=== PATIENT | male | born 1945 | race Caucasian/White ===

== ENCOUNTER → 2016-09-25 | Outpatient (CLI) | payer MEDICARE, OTHER ==
[2016-09-25 09:39] LABS: BASOPHILS % (AUTO) 0 % (0-2); EOSINOPHILS # (AUTO) 0.1 10^3uL; EOSINOPHILS % (AUTO) 2 % (0-4); LYMPHOCYTES # (AUTO) 3.2 X10^3; MEAN CORPUSCULAR HGB CONC 34.1 g/dL (31.0-37.0); MEAN CORPUSCULAR VOLUME 95 FL (80-100); MEAN PLATELET VOLUME 10.1 FL (6.0-9.5); MONOCYTES # (AUTO) 0.8 X10^3; MONOCYTES % (AUTO) 12 % (3-11); NEUTROPHILS # (AUTO) 2.9 X10^3; NEUTROPHILS % (AUTO) 40 % (51-67); PLATELET COUNT 190 10^3uL (150-450); WHITE BLOOD COUNT 7.16 10^3uL (4.0-11.0)
[2016-09-25 09:42] LABS: BILIRUBIN,URINE Negative (Negative); CLARITY,URINE Clear; COLOR,URINE Yellow; GLUCOSE, URINE (UA) Negative (Negative); LEUKOCYTE ESTERASE ,URINE Negative (Negative); PH,URINE 5.5 (5.0 - 8.0); UROBILINOGEN,URINE 0.2 mg/dL (0.2-1.0)
[2016-09-25 10:05] LABS: MEAN CORPUSCULAR HEMOGLOBIN 32.2 PG (26.0-34.0)
[2016-09-25 10:11] LABS: ALBUMIN 4.5 g/dL (3.4-5.0); ANION GAP 14.2 MEQ/L (3-15); TOTAL PROTEIN 7.8 g/dL (6.4-8.5)
[2016-09-25 10:15] LABS: URINE CENTRIFUGED VOLUME 12 mL
== END ==
LOC: LAB 09:09
PROVIDERS: ATTEND Family Medicine
DX: R79.89 Other specified abnormal findings of blood chemistry (principal); E78.2 Mixed hyperlipidemia; D50.8 Other iron deficiency anemias; N39.0 Urinary tract infection, site not specified; E13.65 Other specified diabetes mellitus with hyperglycemia; E83.42 Hypomagnesemia; N40.0 Benign prostatic hyperplasia without lower urinary tract symptoms; E03.4 Atrophy of thyroid (acquired); M81.0 Age-related osteoporosis without current pathological fracture
CPT/HCPCS: 36415; 80053; 80061; 81003; 81015; 82306; 83036; 83735; 84153; 84436; 84443; 85025

== ENCOUNTER 2016-09-29 19:58 | Inpatient (IN) | payer MEDICARE, OTHER ==
[~2016-09-29] VITALS: Ht 177.8 cm; Wt 120.4 kg
[2016-09-29] MEDS ORDERED: ONDANSETRON 2 MG/ML (Z0FRAN) 2 ML VIAL IV ONE ×2 (20:40→22:40)
[2016-09-29 21:10] LABS: MEAN CORPUSCULAR HGB CONC 34.8 g/dL (31.0-37.0); MEAN CORPUSCULAR VOLUME 95 FL (80-100); MEAN PLATELET VOLUME 10.2 FL (6.0-9.5); PLATELET COUNT 160 10^3uL (150-450); WHITE BLOOD COUNT 9.08 10^3uL (4.0-11.0)
[2016-09-29 21:16] LABS: ALBUMIN 4.4 g/dL (3.4-5.0); ANION GAP 18.6 MEQ/L (3-15); CALCULATED IONIZED CALCIUM 3.9 mg/dL (3.8-4.6)
[2016-09-29 21:27] LABS: MEAN CORPUSCULAR HEMOGLOBIN 32.9 PG (26.0-34.0)
[2016-09-29 21:38] LABS: BAND NEUTROPHILS % 7 % (0-6); EOSINOPHILS % 0 % (0-4); MONOCYTES # 0.7 #; MONOCYTES % 8 % (3-11); SEGMENTED NEUTROPHILS % 62 % (51-67); TOTAL CELLS COUNTED 100
[2016-09-29 21:39] LABS: ANISOCYTOSIS SLIGHT; POIKILOCYTOSIS SLIGHT; RBC MORPH SEE REFERENCE (NORMAL)
--- NOTE | 2016-09-29 22:30 | NUR ---
Pt sitting on side of bed c/o severe nausea. Dr. Altamirano notified. Awaiting orders.
[2016-09-29 22:50] LABS: BILIRUBIN,URINE 1+ (Negative); CLARITY,URINE Clear; COLOR,URINE Dark Yellow; GLUCOSE, URINE (UA) Negative (Negative); LEUKOCYTE ESTERASE ,URINE Negative (Negative); PH,URINE 5.5 (5.0 - 8.0); UROBILINOGEN,URINE 0.2 mg/dL (0.2-1.0)
--- NOTE | 2016-09-29 23:45 | NUR ---
Pt drinking oral contrast. Naz. well.
[2016-09-30 00:19] LABS: URINE CENTRIFUGED VOLUME 12 mL
--- NOTE | 2016-09-30 01:10 | NUR ---
Pt back from CT scan. Pt c/o pain to abdomen and requesting pain medication. Rates pain 11/21. Dr. Altamirano notified.
[2016-09-30] MEDS ORDERED: morphine INJ 2 MG/ML 1 ML SYRINGE IV ONE (01:15)
--- NOTE | 2016-09-30 02:30 | NUR ---
NG placed to continuous low wall suction. Had immediate return of light green liquid 500 ml. Pt chandni. placement of NG well.
[2016-09-30] MEDS ORDERED: morphine INJ 4 MG/ML 1 ML SYRINGE IV PRN (02:50)
--- NOTE | 2016-09-30 02:52 | NUR ---
NOTIFIED SUPERVISOR FRONT OF PT ADMIT
--- NOTE | 2016-09-30 03:01 | NUR ---
Patient admitted to room 308 at this time. NG tube in place in right nare from ED, connected to LIWS per order. Patient reports pain 0/10 at this time. Son at bedside. Patient requests to rest in recliner. No needs at this time. Please see admission assessment part 1 & 2. Will continue to monitor.
[2016-09-30 03:15] VITALS: BP 134/88
[2016-09-30] MEDS ORDERED: morphine INJ 2 MG/ML 1 ML SYRINGE ONE (06:15)
[2016-09-30] MEDS: ONDANSETRON 2 MG/ML (Z0FRAN) 2 ML VIAL IV PRN ×2 (06:35→15:18)
--- NOTE | 2016-09-30 06:37 | NUR ---
Patient reporting some pain and some nausea this AM, Morphine and Zofran given. Patient sitting in bed visiting with son. Green output noted in NG tubing, no drainage in container yet. Patient without needs at this time.
[2016-09-30 07:27] VITALS: BP 134/89
--- NOTE | 2016-09-30 07:30 | NUR ---
Patient conversing with son at edge of bed upon shift assessment. Alert and oriented X3. Reports medial abdominal pain rated 2/10 on pain scale. Denies nausea, SOA, bloating, or other distress. Abdomen noted to be distended, firm, and tender to touch. Bowel sounds audible in all quadrants. NG intact to right nare with small amount of clear green output in tubing. IVF infusing without difficulty. Mouth swabs provided per patient request. Updated patient on plan of care for shift including pain management and bowel rest. Call light in reach.
[2016-09-30] MEDS: D5 1/2 NS W/KCL 20 MEQ/L 1,000 ML IV SCH ×3 (07:39→16:58)
[2016-09-30] MEDS ORDERED: PROMETHAZINE HCL INJ 12.5 MG in SODIUM CHLORIDE 25 ML IV PRN (08:30)
[2016-09-30] MEDS ORDERED: SODIUM CHLORIDE FLUSH 10 ML SYR IV SCH (08:45)
[2016-09-30] MEDS: SODIUM CHLORIDE FLUSH 3 ML SYR IV SCH (08:59)
[2016-09-30] MEDS: morphine INJ 4 MG/ML 1 ML SYRINGE IV PRN ×4 (09:24→17:24)
[2016-09-30 11:11] VITALS: BP 126/80
[2016-09-30 11:28] LABS: MEAN CORPUSCULAR HGB CONC 33.8 g/dL (31.0-37.0); MEAN CORPUSCULAR VOLUME 94 FL (80-100); MEAN PLATELET VOLUME 9.9 FL (6.0-9.5); PLATELET COUNT 157 10^3uL (150-450); WHITE BLOOD COUNT 5.75 10^3uL (4.0-11.0)
[2016-09-30 11:32] LABS: MEAN CORPUSCULAR HEMOGLOBIN 31.8 PG (26.0-34.0)
[2016-09-30 11:38] LABS: PHOSPHORUS 3.4 mg/dL (2.4-4.9)
[2016-09-30 11:40] LABS: ALBUMIN 3.8 g/dL (3.4-5.0); CALCULATED IONIZED CALCIUM 3.8 mg/dL (3.8-4.6)
[2016-09-30 12:05] LABS: BAND NEUTROPHILS % 12 % (0-6); EOSINOPHILS % 0 % (0-4); MONOCYTES # 0.7 #; MONOCYTES % 13 % (3-11); SEGMENTED NEUTROPHILS % 58 % (51-67); TOTAL CELLS COUNTED 100
[2016-09-30 12:06] LABS: ANISOCYTOSIS SLIGHT; POIKILOCYTOSIS SLIGHT; RBC MORPH SEE REFERENCE (NORMAL)
[2016-09-30 15:22] VITALS: BP 143/90
--- NOTE | 2016-09-30 18:27 | NUR ---
PRN Morphine provided Q2 throughout day shift for c/o abdominal pain rated 4-7/10 on pain scale. PRN Zofran provided on one occasion. 200 ml green output noted from NG from [id number]. Patient ambulates 5 laps in pacheco with steady gate. Resting now in recliner with eyes closed. Call light in reach.
[2016-09-30 21:08] VITALS: BP 141/97
[2016-09-30 23:41] VITALS: BP 131/89
[2016-10-01] MEDS: D5 1/2 NS W/KCL 20 MEQ/L 1,000 ML IV SCH ×3 (01:03→19:39)
[2016-10-01 04:03] VITALS: BP 133/87
--- NOTE | 2016-10-01 06:16 | NUR ---
Patient has reported no pain throughout night and has had no nausea. This AM is walking with son in halls, NG clamped so that he may walk. Has had 400mL out since 1500 yesterday afternoon. Patient reports this AM that he has passed a lot of gas throughout the night but no BM yet. No needs at this time.
[2016-10-01 06:23] LABS: ALBUMIN 3.4 g/dL (3.4-5.0); ANION GAP 13.9 MEQ/L (3-15); PHOSPHORUS 2.6 mg/dL (2.4-4.9)
--- NOTE | 2016-10-01 07:14 | NUR ---
NUTRITION ASSESSMENT Level 1 Patient: Azael Keita Age/Sex: 71/M Date Screened: 10-01-16 Weight: 264.8#/120.4 kg Height: 70 inches Primary Diagnosis: SBO Diet Order: NPO Relevant labs: glucose 117 Food allergies: N Nutrition Assessment Criteria Age over 80: N Body Mass Index (BMI) under 19: N Admission Screening Indicates Risk? N Moderate/High Risk Diagnosis: 6 points TPN or PPN: N NPO or clear liquid diet: Yes Serum Glucose <70 or >180: N Hgb A1c >6.7: N/A Total: 6 points Risk Screen: __ Patient at low nutritional risk based on available data; reevaluate in 5-7 days __ Patient at moderate nutritional risk based on available data; reevaluate in 3-5 days _X_ Patient at high nutritional risk; complete Nutrition Assessment within 48 hours of admission.
[2016-10-01 07:29] VITALS: BP 128/80
[2016-10-01] MEDS: SODIUM CHLORIDE FLUSH 3 ML SYR IV SCH (09:00)
--- NOTE | 2016-10-01 09:52 | NUR ---
NUTRITION ASSESSMENT Level II Patient: Azael Keita Age/Sex: 71/M Date Assessed: 10-01-16 ASSESSMENT Pertinent History: Patient admitted with SBO and screened at high nutritional risk secondary to diagnosis. PMHx includes previous ileus vs. PSBO. NG was placed on admission and has been draining. Pt. reports 25# weight gain over the past year since custodial and becoming last active. Meds/Nutrition: D5 NS w/ KCl Weight: 264.8#/120.4 kg Height: 70 inches Body Mass Index (BMI): 38.1 [place] Body Weight : 166#/75.4 kg % IBW: 159% GASTROINTESTINAL Appetite: normally good Diet Order: NPO Unintentional loss of >10 lbs. in 3 months: N Difficult to chew/swallow: N Diabetes: N Relevant Labs: glucose 117 Calculations for Nutritional Assessment Estimated calorie needs: 22-25 kcals/kg = 2,640 kcals (minus 500 for weight loss) Estimated protein needs: 1.0-1.2 g/kg ABW = 86-103 g./day DIAGNOSIS 1. Nutrition Diagnosis: (acute) inadequate intake related to altered GI function as evidenced by SBO with NG draining. NUTRITIONAL INTERVENTION Goal: Patient will receive adequate nutrition to meet his needs within an appropriate time-frame. Plan: Will monitor length of time NPO and tolerance to diet as advanced; will follow with physician and surgeon. MONITORING & EVALUATION __ Monitor patients menu selections __ Monitor patients food intake per nursing notes _X_ Monitor NPO/clear liquid days __ Monitor lab values __ Monitor I&O __ Other
[2016-10-01] MEDS ORDERED: CEPASTAT LOZENGE MM PRN (10:10)
--- NOTE | 2016-10-01 11:00 | NUR ---
50mL gastrografin administered via NG tube at this time. Pt tolerates this well. NG tube clamped until [address] orders.
--- NOTE | 2016-10-01 11:43 | NUR ---
MULTIDISCIPLINARY MTG/DR. MALIK: Plan to continue with the same treatment plan. Pt. may possibly have surgery tomorrow. Pt. has been up in the halls and has been passing gas. No discharge needs identified at this time.
[2016-10-01 12:06] VITALS: BP 151/94
[2016-10-01 12:24] VITALS: BP 130/85
--- NOTE | 2016-10-01 13:30 | NUR ---
Upon pt's return from shower, NG tube back to LIWS. Minimal output noted within first few minutes. Will continue to monitor.
--- NOTE | 2016-10-01 14:23 | NUR ---
[facility] completed via conversation with patient and list from Dr. Brandon office.
[2016-10-01 16:00] VITALS: BP 123/76
--- NOTE | 2016-10-01 17:45 | NUR ---
IV to LH noted to be minimally leaking. Drsg removed, flushed; tender and continued to leak. Pt's arms hot packed and Alyssa Hernández RN initiated 22g in LFA on first attempt. IVF resumed. Pt tolerated this well.
--- NOTE | 2016-10-01 18:15 | NUR ---
Pt has denied pain or nausea this shift. Has walked multiple laps in [place], requiring NG tube to be clamped occasionally throughout the shift. Pt had multiple family members from out of state visiting this afternoon. IVF infusing with no difficulty. Pt denies needs at this time. Skin warm, dry, intact. Resprs nonlabored, even on RA. Call light within reach.
[2016-10-01 19:56] VITALS: BP 132/85
--- NOTE | 2016-10-01 20:00 | NUR ---
Patient rests in recliner chair visiting with . Denies abdominal pain or nausea. NG to LIWS. Drainage dark brown, no odor. Patient will walk in p[place]co one more time before bed. Reminded patient of the importance of staying hooked up to his wall suction, due to his increase in stomach content output. IV patent at 125 cc an hour. No complications to site.
[2016-10-02] VITALS (7 sets, daily range): BP systolic 128–144; BP diastolic 78–87
--- NOTE | 2016-10-02 | NUR ---
Resting in recliner. Denies any discomforts. States just cant sleep. Reading a book. Call light within reach.
[2016-10-02] MEDS: D5 1/2 NS W/KCL 20 MEQ/L 1,000 ML IV SCH ×2 (03:46→12:25)
--- NOTE | 2016-10-02 04:00 | NUR ---
To radiology for abdominal x-ray per wheelchair. Returned to recliner chair.
--- NOTE | 2016-10-02 05:56 | NUR ---
Rested after Radiology brought patient back to room. Denies pain or nausea. Rests well in the recliner chair. Call light within reach.
[2016-10-02] MEDS: SODIUM CHLORIDE FLUSH 3 ML SYR IV SCH (09:00)
--- NOTE | 2016-10-02 09:38 | NUR ---
NG tube clamped. Clear liquid tray requested from kitchen per order.
--- NOTE | 2016-10-02 12:40 | NUR ---
Rate change to IV fluids to 75mls/hr.
[2016-10-02] MEDS ORDERED: BISACODYL 10 MG SUPP (DULCOLAX) PR ONE (15:50)
--- NOTE | 2016-10-02 18:15 | NUR ---
Patient reports having large BM. States he feels a little worse after BM and rates pain 5/10. Does not want pain medication that will slow down the process. Dr. Deluca has been in to see patient this evening and is aware of patient progress and feeling of discomfort. states he will order something for patient discomfort.
[2016-10-02] MEDS ORDERED: SIMETHICONE 40 MG/0.6 ML (MYLICON DROPS) ORAL SYRINGE PO PRN (18:55)
[2016-10-02] MEDS ORDERED: SIMETHICONE 80 MG (MYLICON) CHEW PO PRN ×2 (20:05→20:10)
[2016-10-03] MEDS: D5 1/2 NS W/KCL 20 MEQ/L 1,000 ML IV SCH ×2 (01:49→05:46)
[2016-10-03 04:15] VITALS: BP 122/91
[2016-10-03 07:15] VITALS: BP 126/80
--- NOTE | 2016-10-03 07:42 | NUR ---
Patient sitting up in recliner upon shift assessment. Alert and oriented X3. Denies abdominal pain, nausea, or that he is passing flatus. NG clamped and intact to right nare. Reports mild sore throat contributed to tube. Will provide PRN lozenge when patient is finished with full liquid breakfast tray. Abdomen round and soft. Bowel sounds audible in all quadrants. Updated patient on plan of care for shift. Call light in reach.
[2016-10-03] MEDS: SODIUM CHLORIDE FLUSH 3 ML SYR IV SCH (08:00)
--- NOTE | 2016-10-03 08:18 | NUR ---
Patient tolerates full liquid breakfast tray well. Consumes 200ml carnation instant breakfast, 120ml juice, 50 ml vanilla pudding, 100ml cream of wheat, and 240ml milk. Denies pain, nausea, or abdominal distention. Will continue to monitor.
--- NOTE | 2016-10-03 10:18 | NUR ---
Dr. Deluca here to see patient. Removes NG from right nare. Patient continues to deny pain or distress. IVF saline locked. Call light in reach.
[2016-10-03] MEDS ORDERED: BISACODYL 10 MG SUPP (DULCOLAX) PR ONE (11:30)
[2016-10-03 11:45] VITALS: BP 119/76
--- NOTE | 2016-10-03 11:46 | NUR ---
Dulcolax 10mg PA X1 administered at this time. Patient tolerates well.
--- NOTE | 2016-10-03 13:50 | NUR ---
Patient passes large amount of flatus after suppository. Tolerates regular lunch tray without pain or nausea. Dr. Sheriff notified. Discharge order received. Instructions provided to patient, son, and . Verbal and written understanding expressed. IV discontinued with catheter intact. No redness or swelling noted at insertion site. Dismissed ambulatory to private car accompanied by ACCOUNT SPECIALIST. No further needs.
== END 2016-10-03 13:50 | disposition home or self-care (01) | DRG 390 ==
LOC: ED 19:59 → MED/SURG 09-30 02:45
PROVIDERS: ADMIT Pediatrics; ATTEND Pediatrics
DX: K56.60 Unspecified intestinal obstruction (principal); E86.0 Dehydration; E78.5 Hyperlipidemia, unspecified; K21.9 Gastro-esophageal reflux disease without esophagitis; M19.90 Unspecified osteoarthritis, unspecified site; E66.9 Obesity, unspecified; Z68.38 Body mass index [BMI] 38.0-38.9, adult; G47.33 Obstructive sleep apnea (adult) (pediatric); Z79.82 Long term (current) use of aspirin
CPT/HCPCS: 36415; 74000; 74022; 74177; 80053; 80069; 81003; 81015; 83605; 83690; 83735; 84100; 84443; 85025; 86140; 96361; 96374; 96375; 96376; 99283; 99284

== ENCOUNTER → 2016-10-08 | Outpatient (CLI) | payer MEDICARE, OTHER | LOC: RAD 11:19 | PROVIDERS: ATTEND Family Medicine | DX: I49.8 Other specified cardiac arrhythmias (principal); J20.2 Acute bronchitis due to streptococcus; K56.69 Other intestinal obstruction | CPT/HCPCS: 71020; 74020; 93005 ==